=== PATIENT | female | born 1955 | race Caucasian/White ===

== ENCOUNTER 2018-06-04 19:18 | Emergency (ER) | payer BC, MEDICARE, OTHER ==
[2018-06-04] MEDS ORDERED: SODIUM CHLORIDE 0.9% FLUSH 10 ML SOL IV PRN (19:27)
[2018-06-04 19:33] LABS: HEMATOCRIT 47 % (35-47); HEMOGLOBIN 15.1 gm/dl (12.0-15.5); MEAN CORPUSCULAR HEMOGLOBIN 29.1 pg (27.0-32.0); MEAN CORPUSCULAR HGB CONC 32.1 gm/dl (32.0-36.0); MEAN CORPUSCULAR VOLUME 91 fL (81-99)
[2018-06-04 19:43] LABS: INR 0.87 (0.86-1.12)
[2018-06-04 19:49] LABS: BAND NEUTROPHILS % (MANUAL) 4 %; BASOPHILS % (MANUAL) 0 % (0-3); BLOOD UREA NITROGEN 9 mg/dl (7-18); CALCIUM 9.1 mg/dl (8.5-10.1); CARBON DIOXIDE 30.5 mEq/L (21-32); CHLORIDE 104 mMol/L (98-107); CREATININE 0.89 mg/dl (0.60-1.00); EOSINOPHILS % (MANUAL) 4 % (0-9); GLUCOSE 89 mg/dl (74-106); LYMPHOCYTES % (MANUAL) 43 % (10-50); MONOCYTES % (MANUAL) 6 % (0-12); NEUTROPHILS % (MANUAL) 43 % (37-80); NORMAL RBCS PRESENT; POTASSIUM 3.9 mMol/L (3.5-5.1); SODIUM 143 mMol/L (136-145); TROP I < 0.017 ng/ml (0.000-0.056)
[2018-06-04 20:04] VITALS: RESP 22; TEMP 97.6; O2SAT 98
[2018-06-04 20:38] VITALS: BP 169/116; PULSE 78
== END 2018-06-04 20:40 | disposition short-term general hospital (02) | DRG 66 ==
LOC: ED 19:18
DX: I63.9 Cerebral infarction, unspecified (principal); R79.89 Other specified abnormal findings of blood chemistry
CPT/HCPCS: 70450; 80048; 82962; 84484; 85007; 85027; 85610; 85730; 93005; 99291